=== PATIENT | female | born 1985 | race African-American/Black ===

== ENCOUNTER 2019-06-09 18:48 | Emergency (ER) | payer MEDICAID ==
[~2019-06-09] VITALS: Ht 167.6 cm; Wt 116.4 kg
[2019-06-09 18:58] VITALS: Ht 167.6 cm; Wt 116.4 kg
[2019-06-09 19:50] LABS: APPEARANCE HAZY (CLEAR); BILIRUBIN NEGATIVE (NEGATIVE); COLOR YELLOW (YELLOW); GLUCOSE NEGATIVE (NEGATIVE); KETONE NEGATIVE (NEGATIVE); NITRITE NEGATIVE (NEGATIVE); PROTEIN 2+ mg/dL (NEGATIVE); UROBILINOGEN NORMAL (NORMAL)
[2019-06-09 19:51] LABS: BASOPHILS 0.2 % (0-2); EOSINOPHILS 1.9 % (0-7); HCG URINE NEGATIVE (NEGATIVE); HEMATOCRIT 43.4 % (36.0-48.0); HEMOGLOBIN 14.3 g/dL (12-16); IMMATURE GRANULOCYTES 0.5 % (0-5); LYMPHOCYTES 22.9 % (15-50); MCH 27.7 pg (26.0-34.0); MCHC 32.9 g/dL (31.0-37.0); MCV 84.1 fL (80.0-100.0); MEAN PLATELET VOLUME 9.4 fL (7.4-10.4); MONOCYTES 6.4 % (2-11); NEUTROPHILS 68.1 % (40-80); PLATELET COUNT 298 10x3/uL (130-400); RBC 5.16 10x6/uL (4.00-5.40); WBC 8.4 10x3/uL (4.8-10.8)
[2019-06-09 19:53] LABS: RED CELLS - URINE 0-5 /hpf (0-5)
[2019-06-09 19:54] LABS: BACTERIA FEW /hpf (NEGATIVE); EPITHELIAL CELLS 0-5 /hpf (0-5); MUCUS <1+ /lpf (NONE SEEN)
[2019-06-09 20:10] LABS: ANION GAP 12.7 mmol/L (8-16); CALCIUM 8.8 mg/dL (8.5-10.1); CREATININE - SERUM 1.2 mg/dL (0.6-1.3); POTASSIUM - SERUM 3.7 mmol/L (3.5-5.1)
[2019-06-09 20:16] LABS: ALBUMIN 3.7 g/dL (3.4-5.0); BILIRUBIN - TOTAL 0.25 mg/dL (0.2-1.3); PROTEIN - SERUM 8.1 g/dL (6.4-8.2)
[2019-06-09] MEDS ORDERED: ZOFRAN ODT4 MG/UDTAB PO (20:29)
[2019-06-09] MEDS ORDERED: MACROBID100 MG PO (20:29)
[2019-06-09 20:57] VITALS: BP 118/74
== END 2019-06-09 20:57 | disposition home or self-care (01) ==
LOC: D.ER 18:48
PROVIDERS: Emergency Medicine
DX: R10.13 Epigastric pain (principal); R10.9 Unspecified abdominal pain

== ENCOUNTER 2020-11-09 19:00 | Emergency (ER) | payer MEDICAID ==
[2019-06-09 18:58] VITALS: BMI 41.4
[~2020-11-09 19:00] MED LIST: MACROBID100 MG PO; ZOFRAN ODT4 MG/UDTAB PO
== END 2020-11-09 20:36 | disposition left against medical advice (07) ==
LOC: D.ER 19:00
DX: R10.30 Lower abdominal pain, unspecified (principal)